=== PATIENT | male | born 1955 | race Two or more races ===

== ENCOUNTER 2024-08-20 06:50 | Emergency (ER) | payer OTHER ==
[~2024-08-20] VITALS: Ht 177.8 cm; Wt 120.2 kg
[~2024-08-20 06:50] MED LIST: KETO10TA2 PO; LEVSIN/SL0.125 MG SL; TAMS0.4C PO
[2024-08-20] MEDS ORDERED: ATACAND HCT 321 EACH (07:44)
[2024-08-20] MEDS ORDERED: ZIAC (07:45)
[2024-08-20] MEDS ORDERED: UROXATRAL10 MG (07:46)
[2024-08-20] MEDS ORDERED: ULORIC40 MG (07:46)
[2024-08-20 09:31] LABS: BASO % 0.2 % (0.1-1.2); EOS # 0.07 (0.04-0.54); EOS % 0.7 % (0.7-7.0); HEMATOCRIT 45.7 % (40.1-51.0); HEMOGLOBIN 15.6 g/dL (13.7-17.5); LYMPH # 1.89 (1.18-3.74); LYMPH % 19.3 % (19.3-53.1); MEAN CORPUSCULAR HEMOGLOBIN 27.6 pg (25.6-32.2); MONO % 8.2 % (4.7-12.5); NEUT # 7.01 (1.56-6.13); NEUT % 71.4 % (34.0-71.1); PLATELET COUNT 266 K/uL (163-369); RED BLOOD COUNT 5.66 M/uL (4.63-6.08); RED CELL DISTRIBUTION WIDTH 14.2 % (11.6-14.4)
[2024-08-20 09:54] LABS: INR 1.1; PARTIAL THROMBOPLASTIN TIME 30.3 SECONDS (22.0-34.0); PROTHROMBIN TIME 11.9 SECONDS (9.0-11.5)
[2024-08-20 10:19] LABS: ALBUMIN 3.8 gm/dL (3.4-5.0); BILIRUBIN TOTAL 0.43 mg/dL (0.3-1.2); CALCIUM 9.8 mg/dL (8.5-10.1); CREATININE SERUM 1.02 mg/dL (0.70-1.30); GFR 72.41; GLOBULINA 3.8 G/DL (2.4-3.5); POTASSIUM 4.05 mEq/L (3.5-5.1); TOTAL PROTEIN 7.6 gm/dL (6.4-8.2)
== END 2024-08-20 14:44 | disposition home or self-care (01) ==
LOC: ER 07:05
PROVIDERS: Emergency Medicine
DX: K62.5 Hemorrhage of anus and rectum (principal); I10 Essential (primary) hypertension